=== PATIENT | male | born 1950 | race Caucasian/White ===

== ENCOUNTER 2020-12-29 01:13 | Day surgery (SDC) | payer MEDICARE, OTHER, SELFPAY ==
[2020-12-20 12:15] VITALS: BMI 31.4
--- NOTE | 2020-12-29 07:08 | PM.HPGS ---
History of Present Illness History of Present Illness Consent: Risks, benefits, and alternatives have been discussed and questions answered. Patient agrees to proceed with procedure. Chief complaint: hx of colon polyps Narrative: Jaswinder Henson is a 70 year old male with a history of colon polyps here for screening colonoscopy Review of Systems Review of Systems: All systems reviewed & are unremarkable except as noted in HPI and below PMFSH Family History Family History Other Diabetes mellitus Family history of Alzheimer's disease Family history of arthritis Social History Social History Smoking status: Former smoker Alcohol intake: former Living arrangements: with family Spiritual care concerns: No Meds Home Medications and Allergies Home Medications Medication Instructions Recorded Confirmed Type alprazolam 1 mg PO HS PRN 12/20/20 12/29/20 History hydrocodone-acetaminophen 1 tablet PO QID PRN 12/20/20 12/29/20 History lisinopril 10 mg PO DAILY 12/20/20 12/29/20 History metformin 1,000 mg PO BID 12/20/20 12/29/20 History pregabalin 100 mg PO TID 12/20/20 12/29/20 History simvastatin 40 mg PO DAILY 12/20/20 12/29/20 History Allergies Allergy/AdvReac Type Severity Reaction Status Date / Time No Known Allergies Allergy Verified 12/29/20 08:53 Exam Resp: Auscultation: clear to auscultation bilaterally Cardio: Rate: regular rate Rhythm: regular rhythm GI: GI Palp: Yes Soft to palpation and No Tenderness to palpation present (GI) Assessment and Plan Assessment and plan (1) Colon cancer screening: Code(s): Z12.11 - Encounter for screening for malignant neoplasm of colon Status: Acute Assessment and Plan: Colonoscopy with possible biopsy or polypectomy or cautery or injection of substances.
[2020-12-29 08:54] VITALS: BP 128/83; PULSE 90; RESP 18; TEMP 35.6; O2SAT 98
[2020-12-29] MEDS: LACTATED RINGERS 1,000 ML 150 ML IV CONT (09:06)
[2020-12-29 09:12] LABS: Glucose Point of Care 157 mg/dl (65-105)
--- NOTE | 2020-12-29 09:14 | WPDANESEPPF ---
Anes - Initial Pre Proc Eval Procedure: Operation Date: 12/29/20 09:30 Proposed Procedures p Screening Colonoscopy - Eber Thurman MD Date/Time: 12/29/20 09:14 Surgeon: Eber Thurman MD Pre Op Diagnosis: hx of colon polyps Patient Data Age: 70 Gender: M Height: 1.83 m Weight: 97.3 kg Last Vital Signs Temp 35.6 C L 12/29/20 08:54 Pulse 90 12/29/20 08:54 Resp 18 12/29/20 08:54 BP 128/83 12/29/20 08:54 Pulse Ox 98 12/29/20 08:54 Allergies Allergy/AdvReac Type Severity Reaction Status Date / Time No Known Allergies Allergy Verified 12/29/20 08:53 Home Medications Medication Instructions Recorded Confirmed Type alprazolam 1 mg PO HS PRN 12/20/20 12/29/20 History hydrocodone-acetaminophen 1 tablet PO QID PRN 12/20/20 12/29/20 History lisinopril 10 mg PO DAILY 12/20/20 12/29/20 History metformin 1,000 mg PO BID 12/20/20 12/29/20 History pregabalin 100 mg PO TID 12/20/20 12/29/20 History simvastatin 40 mg PO DAILY 12/20/20 12/29/20 History Laboratory Tests 12/29/20 09:09 POC Capillary Glucose 157 mg/dl H mg/dl (65-105) Patient hx anesthesia problems: none Family hx anesthesia problems: none PMFSH Past Medical History Medical History Anxiety Diabetes Surgical History Surgical History History of loop recorder Family History Family History Other Diabetes mellitus Family history of Alzheimer's disease Family history of arthritis Social History Social History Smoking status: Former smoker Alcohol intake: former Living arrangements: with family Spiritual care concerns: No Anes - Eval Final PreProcedure Day of Procedure 12/29/20 09:14 Patient weight: obese Heart: regular rate and rhythm Lungs: clear to auscultation Airway: Mallampati scale class III Neurological: alert and oriented Last oral intake: >/= 8 hours ASA classification: III Emergent: no Anesthetic plan: proceed Anesthesia type and monitoring: general GIVS and standard monitoring Informed Consent: The patient's anesthetic plan and its attendant risks and benefits were discussed with the patient/family/POA. Questions were solicited and answers provided to the satisfaction of the patient/family/POA.
[2020-12-29 09:33] VITALS: BP 110/75; PULSE 72; RESP 20; O2SAT 96
[2020-12-29 09:43] VITALS: BP 113/75; PULSE 67; RESP 20; O2SAT 94
[2020-12-29 09:53] VITALS: BP 123/83; PULSE 58; RESP 20; O2SAT 100
== END 2020-12-29 10:20 | disposition home or self-care (01) ==
PROVIDERS: PCP Internal Medicine; Visit Provider Internal Medicine Gastroenterology
PROC: 0DJD8ZZ Inspection of Lower Intestinal Tract, Via Natural or Artificial Opening Endoscopic (ICD-10-PCS; CPT 45378; principal; 2020-12-29 09:30)
DX: Z12.11 Encounter for screening for malignant neoplasm of colon (principal); K57.30 Diverticulosis of large intestine without perforation or abscess without bleeding; E11.9 Type 2 diabetes mellitus without complications; F41.9 Anxiety disorder, unspecified; Z87.891 Personal history of nicotine dependence; Z86.010 Personal history of colon polyps
CPT/HCPCS: G0105; 82948; J2704; J7120

== ENCOUNTER 2022-10-08 10:16 | Emergency (ER) | payer MEDICARE, OTHER, SELFPAY ==
[2022-10-08 10:31] VITALS: BP 117/68; PULSE 71; RESP 16; TEMP 37.1; O2SAT 98
--- NOTE | 2022-10-08 11:13 | ED.GENADULT ---
HPI - General Adult General Chief complaint: Eye Problems Stated complaint: Eyes Irritation Source: patient Mode of arrival: ambulatory Limitations: no limitations History of Present Illness HPI narrative: Patient presents for evaluation of left eye irritation. Symptom onset yesterday after working with some wood. He believes that a small fragment of wood went in his left eye. Reports some redness denies any significant drainage other than some tearing. Denies any visual disturbance. He was not using protective eyewear at the time of the event. Date of last tetanus unknown. Related Data Home Medications Medication Instructions Recorded Confirmed alprazolam 1 mg tablet 1 mg PO HS PRN Sleep 12/20/20 10/08/22 hydrocodone 7.5 mg-acetaminophen 1 tablet PO QID PRN Pain 12/20/20 10/08/22 325 mg tablet lisinopril 10 mg tablet 10 mg PO DAILY 12/20/20 10/08/22 metformin 1,000 mg tablet 1,000 mg PO BID 12/20/20 10/08/22 pregabalin 100 mg capsule 100 mg PO TID 12/20/20 10/08/22 simvastatin 40 mg tablet 40 mg PO DAILY 12/20/20 10/08/22 Allergies Allergy/AdvReac Type Severity Reaction Status Date / Time No Known Allergies Allergy Verified 10/08/22 10:46 Review of Systems Review of Systems: CONSTITUTIONAL: Denies fever, chills, or sweats. EYES: Reports left eye irritation, redness and tearing. Denies thick discharge. Denies visual disturbance ENT: Denies rhinorrhea, congestion, sore throat, or otalgia. CARDIOVASCULAR: Denies chest pain, palpitations, or edema. RESPIRATORY: Denies cough or dyspnea. GASTROINTESTINAL: Denies abdominal pain, nausea, vomiting, or diarrhea. GENITOURINARY: Denies dysuria or hematuria. SKIN: Denies rash or itching. MUSCULOSKELETAL: Denies back pain, joint pain, or myalgia. NEUROLOGIC: Denies headache, numbness, dizziness, or weakness. PSYCHIATRIC: Denies anxiety or depression. [facility] Past Medical History Medical History Anxiety Diabetes Hyperlipidemia Hypertension Surgical History Surgical History History of loop recorder Family History Family History Other Diabetes mellitus Family history of Alzheimer's disease Family history of arthritis Social History Social History (Reviewed 10/08/22 @ 11:15 by Babar Morales, [facility]) Smoking status: Former smoker Alcohol intake: former Substance use: never Living arrangements: with family Gender identity (if verbalized by the patient): Male Spiritual care concerns: No Exam Narrative: GENERAL: Well-appearing, well-nourished, and in no acute distress. HEAD: Normocephalic, atraumatic. EYES: Left conjunctival injection with some tearing present. PERRLA and EOMI. No dye uptake noted when evaluated with fluorescein stain and Wood's lamp evaluation ENT: Nares clear, no rhinorrhea or epistaxis. Mucous membranes moist. Oropharynx without tonsillar hypertrophy exudate or other lesions. Bilateral TMs pearly venegas nonbulging NECK: Supple. No adenopathy or masses. No carotid bruits or JVD CHEST: Clear to auscultation. No respiratory distress. No wheezes rales or rhonchi HEART: Regular rate and rhythm. No murmur heard. Normal peripheral pulses. ABDOMEN: Soft, nontender, nondistended, normal active bowel sounds. EXTREMITIES: Normal range of motion. No edema. SKIN: Warm, dry, no rash. NEURO: No focal deficits. Alert and oriented x3. PSYCH: Normal mood and affect. Course Course Emergency Course: This is a 72-year-old male who presented for evaluation of left eye irritation, redness, tearing. no evidence of retained foreign body in the left eye. Although I cannot visualize a large corneal abrasion, history is consistent with that. Will treat with erythromycin. Was given tetanus while here. Follow-up with eye doctor and PCP. Go
[2022-10-08] MEDS: TETANUS,DIPHTHERIA,AC PERTUSSIS ADULT (0.5 ML) BOOSTRIX IM (11:15)
== END 2022-10-08 11:22 | disposition home or self-care (01) ==
PROVIDERS: Emergency Provider Nurse Practitioner; PCP Internal Medicine
DX: S05.02XA Injury of conjunctiva and corneal abrasion without foreign body, left eye, initial encounter (principal); X58.XXXA Exposure to other specified factors, initial encounter; Z23 Encounter for immunization; F41.9 Anxiety disorder, unspecified; E11.9 Type 2 diabetes mellitus without complications; E78.5 Hyperlipidemia, unspecified; I10 Essential (primary) hypertension; Z87.891 Personal history of nicotine dependence
CPT/HCPCS: 90471; 90715; 99213; A9270; G0463